=== PATIENT | male | born 1960 | race Caucasian/White ===

== ENCOUNTER → 2020-05-29 | Outpatient (REF) | payer BC | LOC: M LAB REF 07:50 | PROVIDERS: ATTEND Dermatology | DX: C44.310 Basal cell carcinoma of skin of unspecified parts of face (principal); L57.0 Actinic keratosis; C44.619 Basal cell carcinoma of skin of left upper limb, including shoulder ==

== ENCOUNTER 2024-10-14 13:31 | Emergency (ER) | payer BC, OTHER ==
[~2024-10-14] VITALS: Ht 177.8 cm; Wt 54.3 kg
[2024-10-14 17:05] LABS: HEMATOCRIT 42.5 % (42.0-52.0); HEMOGLOBIN 14.7 g/dl (13.5-17.5); MEAN CORPUSCULAR HEMOGLOBIN 31.6 pg (27.0-33.0); MEAN CORPUSCULAR HGB CONC 34.6 g/dl (32.0-36.5); MEAN CORPUSCULAR VOLUME 91.4 fl (80.0-96.0); PLATELET COUNT, AUTOMATED 261 10^3/uL (150-450); RED BLOOD COUNT 4.65 10^6/uL (4.30-6.10); WHITE BLOOD COUNT 11.7 10^3/uL (4.0-10.0)
[2024-10-14 17:27] LABS: ALBUMIN 3.4 G/DL (3.2-5.2); BILIRUBIN,DIRECT 0.3 MG/DL (<0.4); BILIRUBIN,TOTAL 0.7 MG/DL (0.3-1.2); TOTAL PROTEIN 7.4 G/DL (5.7-8.2)
[2024-10-14] MEDS ORDERED: ISOVUE-370 76% 100ML VIAL As Ordered ONE (17:27)
[2024-10-14 17:55] LABS: ATYPICAL LYMPH 5 % (0-5); LYMPHOCYTES 14 % (16-44); MONOCYTES 8 % (0-5); NEUTROPHILS 70 % (28-66); PLATELET ESTIMATE NORMAL (NORMAL)
[2024-10-15 00:26] VITALS: TEMP 97.1
[2024-10-15 01:05] VITALS: BP 132/79; O2SAT 99
== END 2024-10-15 01:33 | disposition short-term general hospital (02) ==
LOC: M ED 13:31
DX: K59.00 Constipation, unspecified (principal); K56.609 Unspecified intestinal obstruction, unspecified as to partial versus complete obstruction; F17.210 Nicotine dependence, cigarettes, uncomplicated; F10.10 Alcohol abuse, uncomplicated
CPT/HCPCS: 36415; 74018; 74177; 80047; 80076; 83605; 85025; 87486; 87581; 87633; 87798; 99284; Q9967

== ENCOUNTER 2024-11-28 16:52 | Inpatient (IN) | payer OTHER ==
[~2024-11-28] VITALS: Ht 177.8 cm; Wt 50.4 kg
[2024-11-28] MEDS: NS (Normal Saline) 0.9% 1,000 ML IV SCH (17:45)
[2024-11-28 18:10] LABS: BASO % 0.3 % (0.0-1.0); EOS % 0.1 % (0.0-3.0); HEMOGLOBIN 14.4 g/dl (13.5-17.5); LYMPH # 1.8 10^3/uL (1.5-5.0); LYMPH % 18.3 % (24.0-44.0); MEAN CORPUSCULAR HEMOGLOBIN 30.9 pg (27.0-33.0); MEAN CORPUSCULAR HGB CONC 34.3 g/dl (32.0-36.5); MEAN CORPUSCULAR VOLUME 90.1 fl (80.0-96.0); MONO # 1.3 10^3/uL (0.0-0.8); MONO % 13.3 % (2.0-8.0); NEUTROPHILS # 6.6 10^3/uL (1.5-8.5); NEUTROPHILS % 67.4 % (36.0-66.0); PLATELET COUNT, AUTOMATED 303 10^3/uL (150-450); RED BLOOD COUNT 4.66 10^6/uL (4.30-6.10); WHITE BLOOD COUNT 9.8 10^3/uL (4.0-10.0)
[2024-11-28] MEDS: GASTROGRAFIN SOLUTION 30ML PO SCH (18:23)
[2024-11-28 18:30] LABS: LIPASE 17 U/L (12-53)
[2024-11-28 18:32] LABS: ALBUMIN 3.2 G/DL (3.2-5.2); ALKALINE PHOSPHATASE 134 U/L (40-129); ALT/SGPT 23 U/L (7.0-40); AST/SGOT 28 U/L (<34); BILIRUBIN,DIRECT 0.5 MG/DL (<0.4); BILIRUBIN,TOTAL 1.3 MG/DL (0.3-1.2); BLOOD UREA NITROGEN 13 MG/DL (9-23); CARBON DIOXIDE LEVEL 28 MMOL/L (20-31); CHLORIDE LEVEL 93 MMOL/L (98-107); CREATININE FOR GFR 0.53 MG/DL (0.70-1.30); GLOMERULAR FILTRATION RATE > 60.0 (>49); GLUCOSE, FASTING 97 MG/DL (74-106); POTASSIUM SERUM 4.5 MMOL/L (3.5-5.1); SODIUM LEVEL 132 MMOL/L (136-145); TOTAL PROTEIN 7.3 G/DL (5.7-8.2)
[2024-11-28] MEDS ORDERED: ISOVUE-370 76% 100ML VIAL As Ordered ONE (19:38)
[2024-11-28] MEDS: ONDANSETRON 4MG 2ML VIAL IV PRN (19:43)
[2024-11-28] MEDS ORDERED: PROC10TA5 PO (20:56)
[2024-11-28] MEDS ORDERED: CREO12CA PO (20:56)
[2024-11-28] MEDS ORDERED: ONDA-282 SL (20:56)
[2024-11-28] MEDS ORDERED: HOME MED LIST COMPLETE! XX SCH (21:00)
[2024-11-28] MEDS ORDERED: ONDANSETRON 4MG 2ML VIAL IV PRN (22:20)
[2024-11-28] MEDS ORDERED: LR 1,000 ML IV SCH (22:20)
[2024-11-28 22:23] LABS: KETONE, URINE AUTO RFX 1+ mg/dL (NEGATIVE); LEUKOCYTE ESTERASE UR AUTO RFX NEGATIVE (NEGATIVE); MUCUS, URINE RFX SMALL (NEGATIVE); NITRITE, URINE AUTO RFX NEGATIVE (NEGATIVE); RBC, URINE AUTO RFX 5 /HPF (0-3); SQUAM EPITHELIAL CELL UR AURFX 0 /HPF (0-6); WBC, URINE AUTO RFX 2 /HPF (0-3)
[2024-11-28] MEDS: D5W/LR 1,000 ML IV SCH (23:45)
[2024-11-29] MEDS: MORPHINE 2 MG/ML 1ML VIAL IV PRN (00:42)
[2024-11-29 05:02] VITALS: BP 135/76; TEMP 97.5; O2SAT 98
[2024-11-29 06:24] LABS: HEMATOCRIT 35.9 % (42.0-52.0); MEAN CORPUSCULAR HGB CONC 34.3 g/dl (32.0-36.5); MEAN CORPUSCULAR VOLUME 90.4 fl (80.0-96.0); PLATELET COUNT, AUTOMATED 269 10^3/uL (150-450); RED BLOOD COUNT 3.97 10^6/uL (4.30-6.10); WHITE BLOOD COUNT 8.7 10^3/uL (4.0-10.0)
[2024-11-29 06:28] LABS: HEMOGLOBIN 12.3 g/dl (13.5-17.5)
[2024-11-29 06:51] LABS: BLOOD UREA NITROGEN 11 MG/DL (9-23); CALCIUM LEVEL 8.4 MG/DL (8.3-10.6); CARBON DIOXIDE LEVEL 27 MMOL/L (20-31); CHLORIDE LEVEL 98 MMOL/L (98-107); CREATININE FOR GFR 0.52 MG/DL (0.70-1.30); GLOMERULAR FILTRATION RATE > 60.0 (>49); GLUCOSE, FASTING 134 MG/DL (74-106); POTASSIUM SERUM 4.4 MMOL/L (3.5-5.1); SODIUM LEVEL 134 MMOL/L (136-145)
[2024-11-29] MEDS: BISACODYL 10MG SUPP PR SCH (09:53)
[2024-11-29] MEDS: DOCUSATE SOD LIQ 100MG/10ML UDC PO SCH (09:53)
[2024-11-29] MEDS: ENOXAPARIN 40MG/0.4ML SYRINGE (J1650 PER 10MG) SC SCH (09:56)
[2024-11-29 11:22] VITALS: BP 138/86; TEMP 97.5; O2SAT 98
[2024-11-29 20:06] VITALS: BP 135/80; TEMP 97.9; O2SAT 98
[2024-11-30 04:00] VITALS: BP 133/81; TEMP 97.9; O2SAT 97
[2024-11-30 07:33] LABS: BLOOD UREA NITROGEN 6 MG/DL (9-23); CALCIUM LEVEL 8.3 MG/DL (8.3-10.6); CHLORIDE LEVEL 97 MMOL/L (98-107); CREATININE FOR GFR 0.47 MG/DL (0.70-1.30); GLOMERULAR FILTRATION RATE > 60.0 (>49); GLUCOSE, FASTING 112 MG/DL (74-106); MAGNESIUM LEVEL 1.9 MG/DL (1.8-2.4); POTASSIUM SERUM 3.6 MMOL/L (3.5-5.1); SODIUM LEVEL 135 MMOL/L (136-145)
[2024-11-30 07:34] LABS: CARBON DIOXIDE LEVEL 33 MMOL/L (20-31)
[2024-11-30] MEDS ORDERED: PROCHLORPERAZINE 5MG TAB PO PRN (11:05)
[2024-11-30] MEDS ORDERED: MORPHINE 10MG/0.5ML ORAL CONCENTRATE SOLUTION U/D SL PRN (11:05)
[2024-11-30] MEDS ORDERED: HYOSCYAMINE SULFATE 0.125 MG SUBL TABLET PO PRN (11:05)
[2024-11-30] MEDS ORDERED: LORazepam 1 MG TAB PO PRN (11:05)
[2024-11-30] MEDS ORDERED: BISACODYL 10MG SUPP PR PRN (11:05)
[2024-11-30] MEDS ORDERED: ONDANSETRON 4MG ORAL DISINTEGRATING TAB PO PRN (11:05)
[2024-11-30] MEDS ORDERED: ATROPINE SULFATE 1% OPHTH SOLN 2ML BTL SL PRN (11:05)
[2024-11-30 12:00] VITALS: BP 130/78; TEMP 97.7
[2024-11-30] MEDS: MIRALAX *UNIT DOSE* 17GM PACKET PO SCH (12:03)
[2024-11-30] MEDS ORDERED: ATIV1TAB7 PO (12:47)
[2024-11-30] MEDS ORDERED: PROC5TAB57 PO (12:47)
[2024-11-30] MEDS ORDERED: OLAN5ZYD PO (12:47)
[2024-11-30] MEDS ORDERED: ATRO2DRO4 SL (12:47)
[2024-11-30] MEDS ORDERED: BISA10SU PR (12:47)
[2024-11-30] MEDS ORDERED: HYOS125TA PO (12:47)
[2024-11-30] MEDS ORDERED: MORP1SOL SL (12:47)
[2024-11-30] MEDS ORDERED: MIRA33506 PO (12:47)
[2024-11-30] MEDS ORDERED: DOCU5LIQ PO (12:47)
[2024-11-30] MEDS ORDERED: ONDA-282 PO (12:47)
[2024-11-30] MEDS ORDERED: MORP1SOL5 PO (12:52)
[2024-11-30] MEDS: ONDANSETRON 4MG ORAL DISINTEGRATING TAB PO SCH (13:39)
[2024-11-30] MEDS ORDERED: OLANZapine ORAL DISINTEGRATING TAB 5MG PO SCH (21:00)
== END 2024-11-30 15:40 | disposition home or self-care (01) | DRG 247 ==
LOC: M ED 16:52 → M ED INP 22:20 → M MS5PR 11-29 04:35
PROVIDERS: ADMIT Internal Medicine; ATTEND Student in an Organized Health Care Education/Training Program
DX: K56.609 Unspecified intestinal obstruction, unspecified as to partial versus complete obstruction (principal); C25.1 Malignant neoplasm of body of pancreas; K86.2 Cyst of pancreas; E87.1 Hypo-osmolality and hyponatremia; K76.89 Other specified diseases of liver; K21.9 Gastro-esophageal reflux disease without esophagitis; K59.00 Constipation, unspecified; K44.9 Diaphragmatic hernia without obstruction or gangrene; Z51.5 Encounter for palliative care; Z66 Do not resuscitate